=== PATIENT | male | born 1955 | race Caucasian/White ===

== ENCOUNTER → 2017-05-07 | Outpatient (REF) | payer BC | LOC: M SFHCCLAY 11:44 | PROVIDERS: ATTEND Family Medicine | DX: M79.675 Pain in left toe(s) (principal) ==

== ENCOUNTER → 2017-12-17 | Outpatient (REF) | payer BC ==
[2017-12-17 12:13] LABS: ALBUMIN 4.1 GM/DL (3.2-5.2); ALBUMIN/GLOBULIN RATIO 1.24 (1.00-1.93); ALKALINE PHOSPHATASE 67 U/L (45-117); ALT/SGPT 37 U/L (12-78); ANION GAP 7 MEQ/L (8-16); AST/SGOT 21 U/L (7-37); BILIRUBIN,TOTAL 0.7 MG/DL (0.2-1.0); BLOOD UREA NITROGEN 15 MG/DL (7-18); CALCIUM LEVEL 9.4 MG/DL (8.8-10.2); CARBON DIOXIDE LEVEL 30 MEQ/L (21-32); CHLORIDE LEVEL 104 MEQ/L (98-107); CHOLESTEROL LEVEL 210 MG/DL (<200); CHOLESTEROL RISK RATIO 3.818 (<5); CREATININE FOR GFR 1.06 MG/DL (0.70-1.30); GLOMERULAR FILTRATION RATE > 60.0 (>49); GLUCOSE, FASTING 87 MG/DL (70-100); HDL CHOLESTEROL 55 MG/DL (>40); LDL CHOLESTEROL 119.8 MG/DL (<100); NON-HDL-C 155 MG/DL; POTASSIUM SERUM 3.9 MEQ/L (3.5-5.1); PSA SCREENING 0.91 NG/ML (< 4.0); SODIUM LEVEL 141 MEQ/L (136-145); TOTAL PROTEIN 7.4 GM/DL (6.4-8.2); TRIGLYCERIDES LEVEL 176 MG/DL (<150)
== END ==
LOC: M SFHCCLAY 08:13
DX: I10 Essential (primary) hypertension (principal); E78.5 Hyperlipidemia, unspecified; Z12.5 Encounter for screening for malignant neoplasm of prostate
CPT/HCPCS: 80053

== ENCOUNTER → 2018-02-10 | Outpatient (CLI) | payer BC | LOC: M CLY 11:00 | DX: J45.40 Moderate persistent asthma, uncomplicated (principal); K21.9 Gastro-esophageal reflux disease without esophagitis; J44.9 Chronic obstructive pulmonary disease, unspecified; G47.30 Sleep apnea, unspecified | CPT/HCPCS: 71046 ==

== ENCOUNTER → 2018-05-20 | Outpatient (REF) | payer BC ==
[2018-05-20 18:34] LABS: ANION GAP 9 MEQ/L (8-16); BLOOD UREA NITROGEN 15 MG/DL (7-18); CALCIUM LEVEL 9.4 MG/DL (8.8-10.2); CARBON DIOXIDE LEVEL 30 MEQ/L (21-32); CHLORIDE LEVEL 102 MEQ/L (98-107); CREATININE FOR GFR 0.99 MG/DL (0.70-1.30); GLOMERULAR FILTRATION RATE > 60.0 (>49); GLUCOSE, FASTING 93 MG/DL (70-100); POTASSIUM SERUM 3.9 MEQ/L (3.5-5.1); SODIUM LEVEL 141 MEQ/L (136-145); URIC ACID 7.6 MG/DL (3.5-7.2)
== END ==
LOC: M SFHCCLAY 10:42
DX: I10 Essential (primary) hypertension (principal); J45.909 Unspecified asthma, uncomplicated; M10.072 Idiopathic gout, left ankle and foot
CPT/HCPCS: 84550

== ENCOUNTER → 2018-07-17 | Outpatient (CLI) | payer MEDICARE | LOC: M SLEEP 19:36 | DX: G47.33 Obstructive sleep apnea (adult) (pediatric) (principal) | CPT/HCPCS: 95810 ==

== ENCOUNTER → 2018-12-23 | Outpatient (REF) | payer MEDICARE ==
[2018-12-23 17:55] LABS: BLOOD UREA NITROGEN 16 MG/DL (7-18); CALCIUM LEVEL 9.5 MG/DL (8.8-10.2); CARBON DIOXIDE LEVEL 30 MEQ/L (21-32); CHLORIDE LEVEL 104 MEQ/L (98-107); CHOLESTEROL LEVEL 182 MG/DL (<200); CHOLESTEROL RISK RATIO 2.983 (<5); CREATININE FOR GFR 1.02 MG/DL (0.70-1.30); GLOMERULAR FILTRATION RATE > 60.0 (>49); GLUCOSE, FASTING 91 MG/DL (70-100); HDL CHOLESTEROL 61 MG/DL (>40); LDL CHOLESTEROL 100 MG/DL (<100); NON-HDL-C 121 MG/DL; POTASSIUM SERUM 3.9 MEQ/L (3.5-5.1); SODIUM LEVEL 140 MEQ/L (136-145); TRIGLYCERIDES LEVEL 103 MG/DL (<150); URIC ACID 8.1 MG/DL (3.5-7.2)
== END ==
LOC: M SFHCCLAY 10:55
PROVIDERS: ATTEND Family Medicine
DX: M10.072 Idiopathic gout, left ankle and foot (principal); E78.5 Hyperlipidemia, unspecified; I10 Essential (primary) hypertension

== ENCOUNTER → 2019-03-04 | Day surgery (SDC) | payer MEDICARE ==
[~2019-03-04] VITALS: Ht 172.7 cm; Wt 80.0 kg
[~2019-03-04] MED LIST: ACET-839 PO; ALPR0.25 PO; FLUC100T PO; HYDR25TAB PO; IBUP-1114 PO; LIDOCAINE 2% INJ 100 MG/5 ML SDV (FOR ANES.) As Ordered ONE; LORA-674 PO; LOVA40TA PO; MULTCAP PO; NS 1,000 ML IV ONE; OMEP-221 PO; PROPOFOL 200 MG/20 ML VIAL As Ordered ONE; TARTCAP PO; TREL1AER INH; VENTAER INH; fentaNYL 100 MCG/2 ML INJECTION (J3010) As Ordered ONE; holter monitor
--- NOTE | 2019-03-04 08:05 | ROOR ---
Patient Name: Elgin Valdez Procedure Date: 03/04/2019 7:46 AM Date of : 1955 Age: 63 Room: [facility] Gender: Male Note Status: Finalized Procedure: Upper Endoscopy + Biopsies Indications: Heartburn, Exclusion of Torres's esophagus Providers: Navin Kaplan MD Referring MD: Ariel Zelaya MD Requesting Provider: Medicines: Monitored Anesthesia Care Complications: No immediate complications. Procedure: Pre-Anesthesia Assessment: - The heart rate, respiratory rate, oxygen saturations, blood pressure, adequacy of pulmonary ventilation, and response to care were monitored throughout the procedure. The Endoscope was introduced through the mouth, and advanced to the second part of duodenum. The upper GI endoscopy was accomplished without difficulty. The patient tolerated the procedure well. Findings: The Z-line was irregular and was found 41 cm from the incisors. Multiple biopsies were obtained with cold forceps for evaluation to rule out Torres's Esophagus randomly at the gastroesophageal junction. A small hiatal hernia was present. No other significant abnormalities were identified in a careful examination of the stomach. The exam of the duodenum was otherwise normal. Impression: - Z-line irregular, 41 cm from the incisors. - Small hiatal hernia. - Multiple biopsies were obtained at the gastroesophageal junction. - The examination was otherwise normal. Recommendation: - Patient has a contact number available for emergencies. The signs and symptoms of potential delayed complications were discussed with the patient. Return to normal activities tomorrow. Written discharge instructions were provided to the patient. - High fiber diet. - Discharge patient to home. - Follow an antireflux regimen. - Continue present medications. - Await pathology results. - Telephone GI clinic for pathology results in 1 week. - Return to referring physician. - The findings and recommendations were discussed with the patient's family. Navin Kaplan MD Navin Kaplan MD 03/04/2019 8:05:06 AM Electronically signed by Navin Kaplan MD Number of Addenda: 0 Note Initiated On: 03/04/2019 7:46 AM Estimated Blood Loss: Estimated blood loss: none.
--- NOTE | 2019-03-04 08:22 | ROOR ---
Patient Name: Elgin Valdez Procedure Date: 03/04/2019 7:47 AM Date of : 1955 Age: 63 Room: [facility] Gender: Male Note Status: Finalized Procedure: Total Colonoscopy to Cecum + Biopsy Polypectomy Indications: High risk colon cancer surveillance: Personal history of colonic polyps, Last colonoscopy: 2013 Providers: Navin Kaplan MD Referring MD: Ariel Zelaya MD Requesting Provider: Medicines: Monitored Anesthesia Care Complications: No immediate complications. Procedure: Pre-Anesthesia Assessment: - The heart rate, respiratory rate, oxygen saturations, blood pressure, adequacy of pulmonary ventilation, and response to care were monitored throughout the procedure. The Colonoscope was introduced through the anus and advanced to the cecum, identified by appendiceal orifice and ileocecal valve. The colonoscopy was performed without difficulty. The patient tolerated the procedure well. The quality of the bowel preparation was excellent. Findings: The perianal and digital rectal examinations were normal. Non-bleeding internal hemorrhoids were found during retroflexion. The hemorrhoids were small and Grade I (internal hemorrhoids that do not prolapse). Multiple small and large-mouthed diverticula were found in the recto-sigmoid colon, sigmoid colon and descending colon. A small polyp was found in the ascending colon. The polyp was sessile. The polyp was removed with a jumbo cold forceps. Resection and retrieval were complete. The exam was otherwise without abnormality on direct and retroflexion views. Impression: - Non-bleeding internal hemorrhoids. - Diverticulosis in the recto-sigmoid colon, in the sigmoid colon and in the descending colon. - One small polyp in the ascending colon, removed with a jumbo cold forceps. Resected and retrieved. - The examination was otherwise normal on direct and retroflexion views. - The exam was otherwise normal to the cecum. Recommendation: - Patient has a contact number available for emergencies. The signs and symptoms of potential delayed complications were discussed with the patient. Return to normal activities tomorrow. Written discharge instructions were provided to the patient. - High fiber diet. - Discharge patient to home. - Continue present medications. - Await pathology results. - Telephone GI clinic for pathology results in 1 week. - Repeat colonoscopy in 5 years for surveillance based on pathology results. - Return to referring physician. - Check Portal Online for Path Results.([email or web address]) - The findings and recommendations were discussed with the patient's family. Navin Kaplan MD Navin Kaplan MD 03/04/2019 8:22:14 AM Electronically signed by Navin Kaplan MD Number of Addenda: 0 Note Initiated On: 03/04/2019 7:47 AM Estimated Blood Loss: Estimated blood loss: none.
[2019-03-04 08:45] VITALS: BP 166/100
== END | disposition home or self-care (01) ==
LOC: M OPP 07:10
PROVIDERS: ATTEND Internal Medicine Gastroenterology
DX: Z12.11 Encounter for screening for malignant neoplasm of colon (principal); Z86.010 Personal history of colon polyps; K64.0 First degree hemorrhoids; D12.2 Benign neoplasm of ascending colon; K57.30 Diverticulosis of large intestine without perforation or abscess without bleeding; K22.8 Other specified diseases of esophagus; K44.9 Diaphragmatic hernia without obstruction or gangrene; R12 Heartburn; Z80.0 Family history of malignant neoplasm of digestive organs; Z88.8 Allergy status to other drugs, medicaments and biological substances; Z91.018 Allergy to other foods; Z87.891 Personal history of nicotine dependence
CPT/HCPCS: 43239; 45380; 88305; J3010

== ENCOUNTER 2019-03-20 09:51 | Emergency (ER) | payer MEDICARE ==
[~2019-03-20] VITALS: Ht 172.7 cm; Wt 77.3 kg
[~2019-03-20 09:51] MED LIST changes: -holter monitor
[2019-03-20] MEDS ORDERED: holter monitor (10:16)
--- NOTE | 2019-03-20 10:38 | REP ---
Clinical: Acute chest pain . Comparison: 02/10/2018 . Findings: The mediastinum and cardiac silhouette are stable and within normal limits for portable technique. The lung trevizo are clear without acute consolidation, effusion, or pneumothorax. Skeletal structures are intact. Impression: No acute cardiopulmonary process appreciated. Electronically Signed by Devonte Mazariegos MD 03/20/2019 10:29 A
[2019-03-20 11:04] LABS: BASO % 0.2 % (0.0-1.0); EOS # 0.2 10^3/uL (0.0-0.50); EOS % 3.6 % (0.0-3.0); HEMATOCRIT 43.9 % (42.0-52.0); HEMOGLOBIN 15.6 g/dl (13.5-17.5); LYMPH # 2.2 10^3/uL (1.5-4.5); LYMPH % 33.2 % (24.0-44.0); MEAN CORPUSCULAR HEMOGLOBIN 31.9 pg (27.0-33.0); MEAN CORPUSCULAR HGB CONC 35.5 g/dl (32.0-36.5); MEAN CORPUSCULAR VOLUME 89.8 fl (80.0-96.0); MONO # 0.5 10^3/uL (0.0-0.8); MONO % 7.7 % (0.0-5.0); NEUTROPHILS # 3.7 10^3/uL (1.8-7.7); NEUTROPHILS % 55.1 % (36.0-66.0); PLATELET COUNT, AUTOMATED 333 10^3/uL (150-450); RED BLOOD COUNT 4.89 10^6/uL (4.30-6.10); WHITE BLOOD COUNT 6.6 10^3/uL (4.0-10.0)
[2019-03-20 11:23] LABS: ALBUMIN 3.7 GM/DL (3.2-5.2); ALT/SGPT 36 U/L (12-78); BILIRUBIN,DIRECT 0.1 MG/DL (0.0-0.2); BILIRUBIN,TOTAL 0.4 MG/DL (0.2-1.0); BLOOD UREA NITROGEN 16 MG/DL (7-18); CALCIUM LEVEL 9.7 MG/DL (8.8-10.2); CARBON DIOXIDE LEVEL 28 MEQ/L (21-32); CHLORIDE LEVEL 105 MEQ/L (98-107); CK-MB VALUE MASS 1.3 NG/ML (<3.6); CPK CREATINE PHOSPHOKINASE 74 U/L (39-308); CREATININE FOR GFR 1.13 MG/DL (0.70-1.30); FREE T4 1.06 NG/DL (0.76-1.46); GLOMERULAR FILTRATION RATE > 60.0 (>49); GLUCOSE, FASTING 161 MG/DL (70-100); MAGNESIUM LEVEL 1.7 MG/DL (1.8-2.4); MB/CK RELATIVE INDEX 1.76 (< OR =4); NT-PRO BNP 34 PG/ML (<125); POTASSIUM SERUM 3.7 MEQ/L (3.5-5.1); SODIUM LEVEL 144 MEQ/L (136-145); THYROID STIMULATING HORMONE 0.661 uIU/ML (0.358-3.740); TOTAL PROTEIN 6.9 GM/DL (6.4-8.2); TROPONIN I < 0.02 NG/ML (< 0.10)
[2019-03-20] MEDS ORDERED: MAG SULF 1GM/100ML (MAG RUN) 1 GM in APPROPRIATE DILUENT 1 EA IV ONE (11:45)
[2019-03-20 13:23] LABS: CPK CREATINE PHOSPHOKINASE 71 U/L (39-308); MB/CK RELATIVE INDEX 1.41 (< OR =4); TROPONIN I < 0.02 NG/ML (< 0.10)
[2019-03-20 13:32] VITALS: BP 153/101
--- NOTE | 2019-03-20 22:27 | ECGEPIP ---
[facility] - ED Test Date: 2019-03-20 Pat Name: LATISHA BURK Department: Room: - Gender: Male Director Behavioral Health: patricio : 1955 Requested By: Maureen Alford Order Number: [id number] Reading MD: Felton Contreras Measurements Intervals [place] Rate: 68 P: 10 [place]: 138 QRS: 4 QRSD: 81 T: 11 QT: 376 QTc: 403 Interpretive Statements SINUS RHYTHM Electronically Signed on 03-20-2019 22:27:06 EDT by Felton Contreras
== END 2019-03-20 13:42 | disposition home or self-care (01) ==
LOC: M ED 09:51
DX: R00.2 Palpitations (principal); I10 Essential (primary) hypertension; E78.5 Hyperlipidemia, unspecified; F41.9 Anxiety disorder, unspecified; J45.909 Unspecified asthma, uncomplicated; G47.30 Sleep apnea, unspecified; Z87.891 Personal history of nicotine dependence; Z88.0 Allergy status to penicillin; Z91.048 Other nonmedicinal substance allergy status; Z88.7 Allergy status to serum and vaccine; Z79.899 Other long term (current) drug therapy; Z79.51 Long term (current) use of inhaled steroids
CPT/HCPCS: 71045; 80048; 80076; 82550; 82553; 83735; 83880; 84439; 84443; 84484; 85025; 93005; 93041; 94760; 99285; J3475

== ENCOUNTER → 2019-03-20 | Outpatient (CLI) | payer MEDICARE ==
[~2019-03-20] MED LIST changes: -LIDOCAINE 2% INJ 100 MG/5 ML SDV (FOR ANES.) As Ordered ONE; -NS 1,000 ML IV ONE; -PROPOFOL 200 MG/20 ML VIAL As Ordered ONE; -fentaNYL 100 MCG/2 ML INJECTION (J3010) As Ordered ONE
--- NOTE | 2019-03-25 07:38 | HOLTMON ---
[facility] Test Date: 2019-03-20 Pat Name: LATISHA BURK Department: Room: - Gender: Male Data Entry Supervisor: Yadira Zaldivar/CONNIE PACKER : 1955 Requested By: Maureen Alford Order Number: [id number] Reading MD: Michael Parnell Interpretive Statements ALTHOUGH THE DIARY WAS EXPLAINED TO THE PATIENT, HE FAILED TO KEEP IT EXCEPT FOR ONE NOTATION. Heart rate variability was normal. There were occasional PVC's and a significant number of PAC's but no significant runs. There is a report of palpitations in the diary. A PAC was noted at that time. No significant ST events or pauses. No atrial fibrillation was seen. Unremarkable Holter monitor except for supraventricular ectopy. Electronically Signed on 03-25-2019 7:38:45 EDT by Michael Parnell
== END ==
LOC: M EKG 13:45
PROVIDERS: ATTEND Emergency Medicine
DX: R00.2 Palpitations (principal)

== ENCOUNTER → 2019-04-30 | Outpatient (REF) | payer MEDICARE ==
[~2019-04-30] MED LIST changes: +holter monitor
[2019-04-30 13:32] LABS: BLOOD UREA NITROGEN 18 MG/DL (7-18); CALCIUM LEVEL 9.6 MG/DL (8.8-10.2); CARBON DIOXIDE LEVEL 33 MEQ/L (21-32); CHLORIDE LEVEL 103 MEQ/L (98-107); GLOMERULAR FILTRATION RATE > 60.0 (>49); GLUCOSE, FASTING 108 MG/DL (70-100); MAGNESIUM LEVEL 1.9 MG/DL (1.8-2.4); POTASSIUM SERUM 3.8 MEQ/L (3.5-5.1); SODIUM LEVEL 144 MEQ/L (136-145); URIC ACID 8.2 MG/DL (3.5-7.2)
== END ==
LOC: M SFHCCLAY 08:37
PROVIDERS: ATTEND Family Medicine
DX: E83.42 Hypomagnesemia (principal); I10 Essential (primary) hypertension; E79.0 Hyperuricemia without signs of inflammatory arthritis and tophaceous disease

== ENCOUNTER → 2019-06-16 | Outpatient (REF) | payer MEDICARE ==
[2019-06-16 13:17] LABS: BLOOD UREA NITROGEN 14 MG/DL (7-18); CALCIUM LEVEL 9.3 MG/DL (8.8-10.2); CARBON DIOXIDE LEVEL 32 MEQ/L (21-32); CHLORIDE LEVEL 105 MEQ/L (98-107); CREATININE FOR GFR 1.14 MG/DL (0.70-1.30); GLOMERULAR FILTRATION RATE > 60.0 (>49); GLUCOSE, FASTING 98 MG/DL (70-100); POTASSIUM SERUM 4.1 MEQ/L (3.5-5.1); SODIUM LEVEL 142 MEQ/L (136-145)
== END ==
LOC: M LABDRAWC 11:27
PROVIDERS: ATTEND Internal Medicine Cardiovascular Disease
DX: I10 Essential (primary) hypertension (principal)

== ENCOUNTER → 2020-08-11 | Outpatient (REF) | payer MEDICARE ==
[2020-08-11 13:57] LABS: HEMATOCRIT 45.4 % (42.0-52.0); HEMOGLOBIN 14.8 g/dl (13.5-17.5); MEAN CORPUSCULAR HEMOGLOBIN 29.9 pg (27.0-33.0); MEAN CORPUSCULAR HGB CONC 32.6 g/dl (32.0-36.5); MEAN CORPUSCULAR VOLUME 91.7 fl (80.0-96.0); PLATELET COUNT, AUTOMATED 363 10^3/uL (150-450); RED BLOOD COUNT 4.95 10^6/uL (4.30-6.10); WHITE BLOOD COUNT 7.5 10^3/uL (4.0-10.0)
[2020-08-11 14:24] LABS: ALT/SGPT 51 U/L (12-78); BILIRUBIN,TOTAL 0.7 MG/DL (0.2-1.0); BLOOD UREA NITROGEN 12 MG/DL (7-18); CALCIUM LEVEL 9.5 MG/DL (8.8-10.2); CARBON DIOXIDE LEVEL 31 MEQ/L (21-32); CHLORIDE LEVEL 105 MEQ/L (98-107); CHOLESTEROL LEVEL 222 MG/DL (<200); CHOLESTEROL RISK RATIO 3.363 (<5); CREATININE FOR GFR 1.11 MG/DL (0.70-1.30); GLOMERULAR FILTRATION RATE > 60.0 (>49); GLUCOSE, FASTING 100 MG/DL (70-100); HDL CHOLESTEROL 66 MG/DL (>40); LDL CHOLESTEROL 125 MG/DL (<100); NON-HDL-C 156 MG/DL; POTASSIUM SERUM 4.4 MEQ/L (3.5-5.1); SODIUM LEVEL 141 MEQ/L (136-145); THYROID STIMULATING HORMONE 0.608 uIU/ML (0.358-3.740); TOTAL PROTEIN 7.2 GM/DL (6.4-8.2); TRIGLYCERIDES LEVEL 154 MG/DL (<150); URIC ACID 7.4 MG/DL (3.5-7.2)
== END ==
LOC: M SFHCCLAY 10:31
PROVIDERS: ATTEND Family Medicine
DX: J45.909 Unspecified asthma, uncomplicated (principal); E78.5 Hyperlipidemia, unspecified; I10 Essential (primary) hypertension; E79.0 Hyperuricemia without signs of inflammatory arthritis and tophaceous disease

== ENCOUNTER → 2021-08-03 | Outpatient (REF) | payer MEDICARE ==
[~2021-08-03] MED LIST changes: +HYDR-3490 PO; -HYDR25TAB PO
[2021-08-03 16:02] LABS: HEMATOCRIT 46.1 % (42.0-52.0); HEMOGLOBIN 15.5 g/dl (13.5-17.5); MEAN CORPUSCULAR HGB CONC 33.6 g/dl (32.0-36.5); MEAN CORPUSCULAR VOLUME 92.2 fl (80.0-96.0); PLATELET COUNT, AUTOMATED 365 10^3/uL (150-450); WHITE BLOOD COUNT 7.9 10^3/uL (4.0-10.0)
[2021-08-03 16:22] LABS: ALBUMIN 3.9 GM/DL (3.2-5.2); ALT/SGPT 43 U/L (12-78); BILIRUBIN,TOTAL 0.5 MG/DL (0.2-1.0); BLOOD UREA NITROGEN 17 MG/DL (7-18); CALCIUM LEVEL 9.8 MG/DL (8.8-10.2); CARBON DIOXIDE LEVEL 29 MEQ/L (21-32); CHLORIDE LEVEL 104 MEQ/L (98-107); CHOLESTEROL LEVEL 195 MG/DL (<200); CHOLESTEROL RISK RATIO 3.196 (<5); CREATININE FOR GFR 1.07 MG/DL (0.70-1.30); GLOMERULAR FILTRATION RATE > 60.0 (>49); GLUCOSE, FASTING 96 MG/DL (70-100); HDL CHOLESTEROL 61 MG/DL (>40); LDL CHOLESTEROL 102 MG/DL (<100); NON-HDL-C 134 MG/DL; POTASSIUM SERUM 4.5 MEQ/L (3.5-5.1); SODIUM LEVEL 139 MEQ/L (136-145); TOTAL PROTEIN 7.2 GM/DL (6.4-8.2); TRIGLYCERIDES LEVEL 160 MG/DL (<150); URIC ACID 7.3 MG/DL (3.5-7.2)
== END ==
LOC: M SFHCCLAY 11:37
PROVIDERS: ATTEND Family Medicine
DX: J45.909 Unspecified asthma, uncomplicated (principal); I10 Essential (primary) hypertension; E78.5 Hyperlipidemia, unspecified; E83.42 Hypomagnesemia; E79.0 Hyperuricemia without signs of inflammatory arthritis and tophaceous disease

== ENCOUNTER → 2022-01-23 | Outpatient (CLI) | payer MEDICARE ==
[~2022-01-23] MED LIST changes: -FLUC100T PO; +FLUC100T3 PO; -OMEP-221 PO; +OMEP40CA5 PO
== END ==
LOC: M RAD 11:18
PROVIDERS: ATTEND Internal Medicine Pulmonary Disease
DX: Z12.2 Encounter for screening for malignant neoplasm of respiratory organs (principal); Z87.891 Personal history of nicotine dependence

== ENCOUNTER → 2022-01-31 | Outpatient (REF) | payer MEDICARE ==
[2022-01-31 16:59] LABS: BLOOD UREA NITROGEN 13 MG/DL (7-18); CALCIUM LEVEL 8.7 MG/DL (8.8-10.2); CARBON DIOXIDE LEVEL 26 MEQ/L (21-32); CHLORIDE LEVEL 109 MEQ/L (98-107); CREATININE FOR GFR 1.09 MG/DL (0.70-1.30); GLOMERULAR FILTRATION RATE > 60.0 (>49); GLUCOSE, FASTING 153 MG/DL (70-100); POTASSIUM SERUM 4.1 MEQ/L (3.5-5.1); SODIUM LEVEL 141 MEQ/L (136-145); URIC ACID 5.8 MG/DL (3.5-7.2)
== END ==
LOC: M SFHCCLAY 10:46
PROVIDERS: ATTEND Family Medicine
DX: I10 Essential (primary) hypertension (principal); M10.072 Idiopathic gout, left ankle and foot

== ENCOUNTER → 2022-06-14 | Outpatient (CLI) | payer MEDICARE ==
[~2022-06-14] MED LIST changes: +ALLO100T PO; +CHEL100T4 PO; +CLAR10CA3 PO; +LOSA50TA28 PO; +MULT-90 PO
== END ==
LOC: M LABSMTC 10:26
PROVIDERS: ATTEND Anesthesiology
DX: Z01.812 Encounter for preprocedural laboratory examination (principal); Z11.52 Encounter for screening for COVID-19

== ENCOUNTER 2022-06-19 09:29 | Day surgery (SDC) | payer MEDICARE ==
[~2022-06-19] VITALS: Ht 175.3 cm; Wt 81.1 kg
[2022-06-19] MEDS ORDERED: fentaNYL 100 MCG/2 ML INJECTION As Ordered ONE ×2 (09:52→11:14)
[2022-06-19] MEDS ORDERED: ONDANSETRON 4MG 2ML VIAL As Ordered ONE (09:53)
[2022-06-19] MEDS ORDERED: ROCURONIUM BROMIDE 50 MG/5 ML VIAL As Ordered ONE (09:53)
[2022-06-19] MEDS ORDERED: MIDAZOLAM INJ 2MG/2ML VIAL (J2250 PER 1MG) As Ordered ONE (09:53)
[2022-06-19] MEDS ORDERED: dexameTHASONE 4 MG/ML 1ML VIAL (J1100 PER 1MG) As Ordered ONE (09:53)
[2022-06-19] MEDS ORDERED: propofoL 200 MG/20 ML VIAL As Ordered ONE (09:53)
[2022-06-19] MEDS ORDERED: LIDOCAINE 2% 100MG/5ML SDV (FOR ANES.) As Ordered ONE (09:53)
[2022-06-19] MEDS ORDERED: LR 1,000 ML IV SCH ×2 (10:00→11:45)
[2022-06-19] MEDS ORDERED: BUPIVACAINE LIPOSOME/PF 1.3% 20ML VIAL (13.3MG/ML)(EXPAREL) As Ordered ONE (10:39)
[2022-06-19] MEDS ORDERED: BUPIVACAINE HCL 0.25% 10ML VIAL As Ordered ONE (10:39)
[2022-06-19] MEDS ORDERED: BUPIVACAINE/EPIN 0.25% 30 ML VIAL As Ordered ONE (10:39)
[2022-06-19] MEDS ORDERED: LevoFLOXacin IV 500 MG in IV 1 EA IV ONE (10:55)
[2022-06-19] MEDS ORDERED: ACETAMINOPHEN 1000MG 100ML IV BTL (OFIRMEV) (J0131 PER 10MG) As Ordered ONE (11:09)
[2022-06-19] MEDS ORDERED: SUGAMMADEX SODIUM 500 MG/5 ML VIAL (BRIDION) As Ordered ONE (11:10)
[2022-06-19] MEDS ORDERED: KETOROLAC 60MG 2ML VIAL As Ordered ONE (11:10)
[2022-06-19] MEDS ORDERED: ONDANSETRON 4MG 2ML VIAL IV PRN (11:45)
[2022-06-19] MEDS ORDERED: HYDROMORPHONE HCL 0.5 MG/ 0.5 ML SYRINGE (J1170 PER 1) IV PRN (11:45)
[2022-06-19] MEDS ORDERED: fentaNYL 100 MCG/2 ML INJECTION IV PRN (11:45)
[2022-06-19] MEDS ORDERED: oxyCODONE 5MG TAB PO PRN (11:45)
[2022-06-19] MEDS ORDERED: NS 1,000 ML IV SCH (12:20)
[2022-06-19] MEDS ORDERED: traMADol 50 MG TAB PO PRN (12:20)
[2022-06-19 13:12] VITALS: BP 149/80
== END 2022-06-19 13:17 | disposition home or self-care (01) ==
LOC: M SDC 09:29
PROVIDERS: ATTEND Surgery
DX: K42.9 Umbilical hernia without obstruction or gangrene (principal); I10 Essential (primary) hypertension; K22.70 Barrett's esophagus without dysplasia; M19.90 Unspecified osteoarthritis, unspecified site; F41.9 Anxiety disorder, unspecified; F32.A Depression, unspecified; K21.9 Gastro-esophageal reflux disease without esophagitis; Z79.899 Other long term (current) drug therapy; Z88.0 Allergy status to penicillin; Z88.7 Allergy status to serum and vaccine; Z91.018 Allergy to other foods
CPT/HCPCS: 49585; 88302; 93005; C9290; J0131; J1100; J1885; J1956; J2250; J2405; J3010

== ENCOUNTER → 2022-07-24 | Outpatient (REF) | payer MEDICARE ==
[2022-07-24 18:13] LABS: ALBUMIN 3.9 G/DL (3.2-5.2); ALKALINE PHOSPHATASE 70 U/L (46-116); ALT/SGPT 40 U/L (7.0-40); AST/SGOT 25 U/L (<34); BILIRUBIN,TOTAL 0.7 MG/DL (0.3-1.2); BLOOD UREA NITROGEN 19 MG/DL (9-23); CALCIUM LEVEL 9.8 MG/DL (8.3-10.6); CARBON DIOXIDE LEVEL 29 MMOL/L (20-31); CHLORIDE LEVEL 103 MMOL/L (98-107); CHOLESTEROL LEVEL 173 MG/DL (<200); CHOLESTEROL RISK RATIO 2.88 (<5); CREATININE FOR GFR 1.05 MG/DL (0.70-1.30); GLOMERULAR FILTRATION RATE > 60.0 (>49); GLUCOSE, FASTING 95 MG/DL (74-106); HDL CHOLESTEROL 59.9 MG/DL (>40); LDL CHOLESTEROL 92.1 MG/DL (<100); NON-HDL-C 113 MG/DL; POTASSIUM SERUM 5.2 MMOL/L (3.5-5.1); SODIUM LEVEL 139 MMOL/L (136-145); TOTAL PROTEIN 6.8 G/DL (5.7-8.2); TRIGLYCERIDES LEVEL 105 MG/DL (<150)
== END ==
LOC: M SFHCCLAY 10:55
PROVIDERS: ATTEND Family Medicine
DX: I10 Essential (primary) hypertension (principal); E78.5 Hyperlipidemia, unspecified

== ENCOUNTER → 2023-01-09 | Outpatient (REF) | payer MEDICARE ==
[2023-01-09 17:54] LABS: HEMATOCRIT 44.8 % (42.0-52.0); HEMOGLOBIN 15.2 g/dl (13.5-17.5); MEAN CORPUSCULAR HEMOGLOBIN 31.3 pg (27.0-33.0); MEAN CORPUSCULAR HGB CONC 33.9 g/dl (32.0-36.5); MEAN CORPUSCULAR VOLUME 92.4 fl (80.0-96.0); PLATELET COUNT, AUTOMATED 337 10^3/uL (150-450); RED BLOOD COUNT 4.85 10^6/uL (4.30-6.10); WHITE BLOOD COUNT 6.7 10^3/uL (4.0-10.0)
[2023-01-09 18:24] LABS: ALBUMIN 3.8 G/DL (3.2-5.2); ALKALINE PHOSPHATASE 66 U/L (46-116); ALT/SGPT 43 U/L (7.0-40); AST/SGOT 26 U/L (<34); BILIRUBIN,TOTAL 0.7 MG/DL (0.3-1.2); BLOOD UREA NITROGEN 20 MG/DL (9-23); CALCIUM LEVEL 9.1 MG/DL (8.3-10.6); CARBON DIOXIDE LEVEL 28 MMOL/L (20-31); CHLORIDE LEVEL 105 MMOL/L (98-107); CHOLESTEROL LEVEL 174 MG/DL (<200); CHOLESTEROL RISK RATIO 2.78 (<5); CREATININE FOR GFR 1.02 MG/DL (0.70-1.30); GLOMERULAR FILTRATION RATE > 60.0 (>49); GLUCOSE, FASTING 90 MG/DL (74-106); HDL CHOLESTEROL 62.5 MG/DL (>40); LDL CHOLESTEROL 90.5 MG/DL (<100); NON-HDL-C 111.5 MG/DL; POTASSIUM SERUM 4.8 MMOL/L (3.5-5.1); SODIUM LEVEL 139 MMOL/L (136-145); TOTAL PROTEIN 6.6 G/DL (5.7-8.2); TRIGLYCERIDES LEVEL 105 MG/DL (<150)
== END ==
LOC: M SFHCCLAY 10:12
PROVIDERS: ATTEND Family Medicine
DX: E78.5 Hyperlipidemia, unspecified (principal); I10 Essential (primary) hypertension; M10.072 Idiopathic gout, left ankle and foot; E83.42 Hypomagnesemia; Z12.5 Encounter for screening for malignant neoplasm of prostate
CPT/HCPCS: 80053; 80061; 84550; 85027; G0103

== ENCOUNTER → 2023-02-22 | Outpatient (CLI) | payer MEDICARE | LOC: M RAD 13:38 | PROVIDERS: ATTEND Internal Medicine Pulmonary Disease | DX: Z12.2 Encounter for screening for malignant neoplasm of respiratory organs (principal); Z87.891 Personal history of nicotine dependence ==

== ENCOUNTER → 2024-02-26 | Outpatient (REF) | payer MEDICARE ==
[~2024-02-26] MED LIST changes: +LORA-1041 PO; -LORA-674 PO
[2024-02-26 17:12] LABS: HEMATOCRIT 44.3 % (42.0-52.0); HEMOGLOBIN 15.1 g/dl (13.5-17.5); MEAN CORPUSCULAR HEMOGLOBIN 31.5 pg (27.0-33.0); MEAN CORPUSCULAR HGB CONC 34.1 g/dl (32.0-36.5); MEAN CORPUSCULAR VOLUME 92.3 fl (80.0-96.0); PLATELET COUNT, AUTOMATED 294 10^3/uL (150-450); WHITE BLOOD COUNT 6.7 10^3/uL (4.0-10.0)
[2024-02-26 17:35] LABS: ALBUMIN 3.9 G/DL (3.2-5.2); ALKALINE PHOSPHATASE 68 U/L (46-116); ALT/SGPT 44 U/L (7.0-40); AST/SGOT 20 U/L (<34); BILIRUBIN,TOTAL 0.8 MG/DL (0.3-1.2); BLOOD UREA NITROGEN 15 MG/DL (9-23); CALCIUM LEVEL 9.8 MG/DL (8.3-10.6); CARBON DIOXIDE LEVEL 29 MMOL/L (20-31); CHLORIDE LEVEL 107 MMOL/L (98-107); CHOLESTEROL LEVEL 197 MG/DL (<200); CHOLESTEROL RISK RATIO 2.99 (<5); CREATININE FOR GFR 0.93 MG/DL (0.70-1.30); GLOMERULAR FILTRATION RATE > 60.0 (>42); GLUCOSE, FASTING 102 MG/DL (74-106); HDL CHOLESTEROL 65.8 MG/DL (>40); MAGNESIUM LEVEL 1.8 MG/DL (1.8-2.4); NON-HDL-C 131.2 MG/DL; POTASSIUM SERUM 4.8 MMOL/L (3.5-5.1); SODIUM LEVEL 140 MMOL/L (136-145); TOTAL PROTEIN 6.8 G/DL (5.7-8.2); TRIGLYCERIDES LEVEL 161 MG/DL (<150)
== END ==
LOC: M SFHCCLAY 10:21
PROVIDERS: ATTEND Family Medicine
DX: E78.5 Hyperlipidemia, unspecified (principal); E83.42 Hypomagnesemia; I10 Essential (primary) hypertension; J45.909 Unspecified asthma, uncomplicated; R74.01 Elevation of levels of liver transaminase levels

== ENCOUNTER → 2024-04-03 | Outpatient (CLI) | payer MEDICARE | LOC: M RAD 12:46 | PROVIDERS: ATTEND Internal Medicine Pulmonary Disease | DX: Z12.2 Encounter for screening for malignant neoplasm of respiratory organs (principal); Z87.891 Personal history of nicotine dependence; I70.0 Atherosclerosis of aorta; I25.10 Atherosclerotic heart disease of native coronary artery without angina pectoris ==

== ENCOUNTER → 2024-08-05 | Outpatient (REF) | payer MEDICARE ==
[2024-08-05 17:08] LABS: ALBUMIN 3.8 G/DL (3.2-5.2); ALKALINE PHOSPHATASE 69 U/L (40-129); ALT/SGPT 35 U/L (7.0-40); AST/SGOT 22 U/L (<34); BILIRUBIN,TOTAL 0.7 MG/DL (0.3-1.2); BLOOD UREA NITROGEN 14 MG/DL (9-23); CALCIUM LEVEL 10.1 MG/DL (8.3-10.6); CARBON DIOXIDE LEVEL 30 MMOL/L (20-31); CHLORIDE LEVEL 105 MMOL/L (98-107); CHOLESTEROL LEVEL 196 MG/DL (<200); CHOLESTEROL RISK RATIO 2.93 (<5); CREATININE FOR GFR 0.92 MG/DL (0.70-1.30); GLOMERULAR FILTRATION RATE > 60.0 (>42); GLUCOSE, FASTING 104 MG/DL (74-106); HDL CHOLESTEROL 66.7 MG/DL (>40); LDL CHOLESTEROL 107.3 MG/DL (<100); MAGNESIUM LEVEL 1.8 MG/DL (1.8-2.4); NON-HDL-C 129.3 MG/DL; SODIUM LEVEL 140 MMOL/L (136-145); TOTAL PROTEIN 7.4 G/DL (5.7-8.2); TRIGLYCERIDES LEVEL 110 MG/DL (<150)
[2024-08-05 17:25] LABS: HEMOGLOBIN A1c 5.3 % (4.0-6.0)
== END ==
LOC: M SFHCCLAY 11:22
PROVIDERS: ATTEND Physician Assistant
DX: E78.5 Hyperlipidemia, unspecified (principal); I10 Essential (primary) hypertension; J45.909 Unspecified asthma, uncomplicated; M25.551 Pain in right hip; R74.01 Elevation of levels of liver transaminase levels; G47.33 Obstructive sleep apnea (adult) (pediatric); I77.810 Thoracic aortic ectasia; K21.9 Gastro-esophageal reflux disease without esophagitis; F41.9 Anxiety disorder, unspecified; M10.072 Idiopathic gout, left ankle and foot; E83.42 Hypomagnesemia; Z79.899 Other long term (current) drug therapy

== ENCOUNTER 2024-12-21 07:48 | Day surgery (SDC) | payer MEDICARE ==
[~2024-12-21] VITALS: Ht 172.7 cm; Wt 83.0 kg
[~2024-12-21 07:48] MED LIST changes: +FLON1SPR
[2024-12-21 09:51] VITALS: TEMP 98
[2024-12-21 10:07] VITALS: BP 122/69; O2SAT 97
== END 2024-12-21 10:37 | disposition home or self-care (01) ==
LOC: M OPP 07:48
PROVIDERS: ATTEND Internal Medicine Gastroenterology
DX: K57.30 Diverticulosis of large intestine without perforation or abscess without bleeding (principal); K64.0 First degree hemorrhoids; Z86.0100 Personal history of colon polyps, unspecified; K22.89 Other specified disease of esophagus; R12 Heartburn; G47.30 Sleep apnea, unspecified; Z88.0 Allergy status to penicillin; Z88.7 Allergy status to serum and vaccine; Z88.8 Allergy status to other drugs, medicaments and biological substances; Z79.51 Long term (current) use of inhaled steroids; Z79.899 Other long term (current) drug therapy; J45.909 Unspecified asthma, uncomplicated

== ENCOUNTER → 2025-04-30 | Outpatient (CLI) | payer MEDICARE | LOC: M RAD 09:40 | PROVIDERS: ATTEND Internal Medicine Pulmonary Disease | DX: I25.10 Atherosclerotic heart disease of native coronary artery without angina pectoris (principal); I25.84 Coronary atherosclerosis due to calcified coronary lesion; Z87.891 Personal history of nicotine dependence ==